=== PATIENT | male | born 1990 | race Caucasian/White ===

== ENCOUNTER 2020-10-10 18:42 | Emergency (ER) | payer OTHER ==
[2020-10-10 20:14] LABS: BASOPHIL 0.3 % (0-2); EOSINOPHIL 0.3 % (0-5); HCT 45.6 % (42.0-52.0); HGB 15.9 g/dl (13.2-18.0); LYMPHOCYTE 19.9 % (15-48); MCH 31.6 pg (25.0-31.0); MCHC 34.9 g/dL (32.0-36.0); MCV 90.7 fL (78.0-100.0); MONOCYTE 7.9 % (0-12); NEUTROPHIL 71.1 % (41-80); NRBC 0; PLT 267 K/uL (150-400); RBC 5.03 M/uL (4.70-6.00); RDW 12.1 % (11.5-14.0); WBC 14.6 K/uL (4.0-10.5)
[2020-10-10 20:15] LABS: BILIRUBIN NEGATIVE (NEGATIVE); BLOOD NEGATIVE Ery/uL (NEGATIVE); CLARITY CLEAR (CLEAR); COLOR YELLOW (YELLOW); GLUCOSE (U) NORMAL (NORMAL); LEUKOCYTES NEGATIVE Leu/uL (NEGATIVE); NITRITE NEGATIVE (NEGATIVE); PROTEIN 1+ mg/dL (NEGATIVE); SPECIFIC GRAVITY 1.025 (1.001-1.030); UROBILINOGEN 0.2 mg/dL (0.2-1.0); pH 6.5 (5.0-9.0)
[2020-10-10 20:23] LABS: URINARY WBC RARE
[2020-10-10 20:24] LABS: SQUAMOUS EPITHELIAL CELLS RARE
[2020-10-10 20:40] LABS: BILIRUBIN - TOTAL 0.4 mg/dL (0.2-1.0); CREATININE 0.86 mg/dL (0.67-1.17); GLOBULIN (CALCULATION) 3.7 g/dL; POTASSIUM 3.8 mmol/L (3.5-5.1); TOTAL PROTEIN 7.7 g/dL (6.4-8.2)
== END 2020-10-11 02:15 | disposition home or self-care (01) ==
LOC: FER 18:42
PROVIDERS: Emergency Medicine
DX: R10.84 Generalized abdominal pain (principal); R31.9 Hematuria, unspecified; F17.200 Nicotine dependence, unspecified, uncomplicated
CPT/HCPCS: 36415; 80053; 81001; 82150; 83690; 85025